=== PATIENT | female | born 1980 | race Two or more races ===

== ENCOUNTER 2020-07-07 06:05 | Day surgery (SDC) | payer OTHER ==
[2020-07-07] MEDS ORDERED: PERCOCET 5-3251 EACH PO (14:49)
[2020-07-07] MEDS ORDERED: NEURONTIN600 M1 PO (14:50)
== END 2020-07-07 17:15 | disposition home or self-care (01) ==
LOC: CIR.AMB 06:05
PROVIDERS: ATTEND Surgery
DX: K80.10 Calculus of gallbladder with chronic cholecystitis without obstruction (principal); Z20.828 Contact with and (suspected) exposure to other viral communicable diseases